=== PATIENT | female | born 1985 | race Caucasian/White ===

== ENCOUNTER 2017-08-11 02:43 | Emergency (ER) | payer OTHER ==
[2017-08-11 02:49] VITALS: BP 133/83; PULSE 91; RESP 18; TEMP 97.9
[2017-08-11] MEDS ORDERED: KETOROLAC 60 MG/2 ML VIAL IM STA (02:52)
[2017-08-11] MEDS ORDERED: ORPHENADRINE 30 MG/ML 2 ML VIAL IM STA (02:52)
--- NOTE | 2017-08-11 03:08 | ED ---
General Adult HPI - General Chief complaint: Back Pain/Injury Stated complaint: back pain Time Seen by Provider: 08/11/17 02:50 Source: patient, RN notes reviewed Mode of arrival: ambulatory Limitations: no limitations - History of Present Illness Initial comments: 31-year-old female presents to the emergency department with a chief complaint of left-sided low back pain. 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 She states she just feels as if there is a very tight muscle. She states standing up always straight causes her increased pain. She denies any numbness or tingling down the leg she denies any loss of bowel or bladder function. Patient denies any fever chills any cough cold symptoms. Any history of kidney stones any changes in urination. She did not take anything for the pain she just came directly here. She was concerned due to the discomfort so she thought that she should be seen.Patient denies any recent fever, chills, shortness of breath, chest pain, abdominal pain, nausea vomiting , numbness or tingling, dysuria or hematuria, constipation or diarrhea, headaches or visual changes, or any other current symptoms. - Related Data Home Medications Medication Instructions Recorded Confirmed Albuterol Inhaler [Ventolin 1 - 2 puff INHALATION Q6HR PRN 01/08/15 01/08/15 Inhaler] Previous Rx's Medication Instructions Recorded Albuterol Inhaler [Ventolin Hfa 2 puff INHALATION Q4HR PRN #1 01/09/15 Inhaler] inhaler predniSONE 50 mg PO DAILY #5 tab 01/09/15 Orphenadrine [Norflex] 100 mg PO Q12H #10 tablet.er 08/11/17 Allergies Allergy/AdvReac Type Severity Reaction Status Date / Time No Known Allergies Allergy Verified 01/08/15 23:56 Review of Systems ROS Statement: Those systems with pertinent positive or pertinent negative responses have been documented in the HPI. ROS Other: All systems not noted in ROS Statement are negative. Past Medical History Past Medical History: Asthma History of Any Multi-Drug Resistant Organisms: None Reported Past Surgical History: Section, Tubal Ligation Past Psychological History: No Psychological Hx Reported Smoking Status: Current every day smoker Past Alcohol Use History: None Reported Past Drug Use History: None Reported General Exam Limitations: no limitations General appearance: alert, in no apparent distress Neck exam: Present: normal inspection. Absent: tenderness, meningismus, lymphadenopathy Respiratory exam: Present: normal lung sounds bilaterally. Absent: respiratory distress, wheezes, rales, rhonchi, stridor Cardiovascular Exam: Present: regular rate, normal rhythm, normal heart sounds. Absent: systolic murmur, diastolic murmur, rubs, gallop, clicks Extremities exam: Present: normal inspection, full ROM, normal capillary refill. Absent: tenderness, pedal edema, joint swelling, calf tenderness Back exam: Present: normal inspection, full ROM, tenderness ((Spinal region), muscle spasm ((Spinal). Absent: vertebral tenderness, rash noted Neurological exam: Present: alert, oriented X3 Psychiatric exam: Present: normal affect, normal mood Skin exam: Present: warm, dry, intact, normal color. Absent: rash Course Vital Signs 08/11/17 02:45 Temperature 97.9 F Pulse Rate 91 Respiratory 18 Rate Blood Pressure 133/83 O2 Sat by Pulse 99 Oximetry Medical Decision Making - Medical Decision Making 31-year-old female presents with what appears to be lumbar strain and muscle spasm after bending type injury at work. This time with Norflex and Toradol she is feeling better. This time we will start her on Norflex for home. We discussed follow-up we discussed return parameters all questions. Patient stated that she understood and she is agreement this plan. She will be discharged home. Disposition Clinical Impression: Strain of lumbar region, Muscle spasm Disposition: HOME SELF-CARE Condition: Stable Instructions: Muscle Spasm (ED), Lower Back Exercises (ED) Additional Instructions: Please use medication as discussed. Please follow up with family doctor if symptoms have not improved over the next two days. Please return to the emergency room if your symptoms increase or worsen or for any other concerns. Prescriptions: Orphenadrine [Norflex] 100 mg PO Q12H #10 tablet.er Referrals: Lissa James III, MD [STAFF PHYSICIAN] - 1-2 days Time of Disposition: 03:22
== END 2017-08-11 03:29 | disposition home or self-care (01) ==
LOC: EC 02:43
DX: S39.012A Strain of muscle, fascia and tendon of lower back, initial encounter (principal); X50.1XXA Overexertion from prolonged static or awkward postures, initial encounter; Y93.89 Activity, other specified; Y92.69 Other specified industrial and construction area as the place of occurrence of the external cause; F17.200 Nicotine dependence, unspecified, uncomplicated
CPT/HCPCS: 99283; 96372 ×2; J2360; J1885

== ENCOUNTER 2017-10-20 16:22 | Emergency (ER) | payer OTHER ==
[2017-10-20] MEDS ORDERED: ONDANSETRON 4 MG ODT STARTER PACK 2 TAB BTL PO STA (17:25)
[2017-10-20] MEDS ORDERED: ACETAMINOPHEN TAB 500 MG TAB PO STA (17:25)
[2017-10-20] MEDS ORDERED: IBUPROFEN 600 MG STARTER PACK 4 TAB BTL PO STA (17:25)
[2017-10-20] MEDS ORDERED: IPRATROPIUM-ALBUTEROL 3 ML NEB INHALATION STA (17:26)
--- NOTE | 2017-10-20 17:29 | ED ---
Fever HPI - General Chief Complaint: Fever Stated Complaint: Fever Time Seen by Provider: 10/20/17 17:03 Source: patient, RN notes reviewed, old records reviewed Mode of arrival: ambulatory Limitations: no limitations - History of Present Illness Initial Comments: 32-year-old female presents emergency room Chief complaint of 2 days of cough and congestion. She states that she isn't having a sore throat as well for the past 2 days. She states that she vomited last night. She states that she was sent home from work. Patient relates that she's had no urinary symptoms. She states that she has been having hard time with some food today. She reports that she's been having some left lower quadrant abdominal pain intermittently for the past few days. She states that this abdominal pain was prior to her onset of upper a story symptoms. She denies any changes in stools. She states that she has had a history of sick contacts including her nephew and her son. - Related Data Home Medications Medication Instructions Recorded Confirmed Ibuprofen [Motrin Ib] 400 mg PO Q6H PRN 10/20/17 10/20/17 Pseudoephedrine [Sudafed] 30 mg PO Q4H PRN 10/20/17 10/20/17 Previous Rx's Medication Instructions Recorded Albuterol Inhaler [Ventolin Hfa 1 - 2 puff INHALATION RT-Q6H PRN 10/20/17 Inhaler] #1 inhaler Azithromycin [Zithromax Z-pack] 250 mg PO DIRECTED #6 tab 10/20/17 predniSONE 10 mg PO DAILY #15 tab 10/20/17 Allergies Allergy/AdvReac Type Severity Reaction Status Date / Time No Known Allergies Allergy Verified 10/20/17 17:11 Review of Systems ROS Statement: Those systems with pertinent positive or pertinent negative responses have been documented in the HPI. ROS Other: All systems not noted in ROS Statement are negative. Past Medical History Past Medical History: Asthma History of Any Multi-Drug Resistant Organisms: None Reported Past Surgical History: Section, Tubal Ligation Past Psychological History: No Psychological Hx Reported Smoking Status: Current every day smoker Past Alcohol Use History: None Reported Past Drug Use History: None Reported General Exam - General Exam Comments Initial Comments: 32-year-old female. Alert and oriented. No significant distress. Limitations: no limitations General appearance: alert, in no apparent distress Head exam: Present: atraumatic, normocephalic, normal inspection Eye exam: Present: normal appearance, PERRL, EOMI. Absent: scleral icterus, conjunctival injection, periorbital swelling ENT exam: Present: mucous membranes moist, TM's normal bilaterally, other ( Rhinorrhea noted. Patient has tenderness over the ethmoid sinuses.). Absent: normal exam, normal oropharynx (Erythematous oropharynx.) Neck exam: Present: normal inspection, lymphadenopathy. Absent: tenderness, meningismus Respiratory exam: Present: normal lung sounds bilaterally. Absent: respiratory distress, wheezes, rales, rhonchi, stridor Cardiovascular Exam: Present: regular rate, normal rhythm, normal heart sounds. Absent: systolic murmur, diastolic murmur, rubs, gallop, clicks GI/Abdominal exam: Present: soft, normal bowel sounds. Absent: distended, tenderness, guarding, rebound, rigid Extremities exam: Present: normal inspection, full ROM, normal capillary refill. Absent: tenderness, pedal edema, joint swelling, calf tenderness Back exam: Present: normal inspection Neurological exam: Present: alert, oriented X3, CN II-XII intact Course Vital Signs 10/20/17 10/20/17 10/20/17 16:31 18:22 18:30 Temperature 100.0 F H Pulse Rate 94 94 96 Respiratory 20 Rate Blood Pressure 109/64 O2 Sat by Pulse 98 Oximetry Medical Decision Making - Medical Decision Making 32-year-old female presents chief complaint of fever, upper respiratory congestion. Patient reports no signs of intermittent left-sided abdominal pain. Normal stools or vomits. She doubts of vomiting. She is given Zofran, Motrin and Tylenol. Urinalysis negative. Chest x-rays reviewed and shows no acute process. Fluid rapid strep are negative. She does have significant sinus congestion. Productive cough. The Patient on steroids and azithromycin cover for community acquired pneumonia. Discussed appropriate follow-up. Patient understood history plan will comply. Return parameters were discussed. - Lab Data Lab Results 10/20/17 10/20/17 10/20/17 Range/Units 17:40 17:40 17:51 Urine Color Urine Appearance (Clear) Urine pH (5.0-8.0) Ur Specific [place] (1.001-1.035) Urine Protein (Negative) Urine Glucose (UA) (Negative) Urine Ketones (Negative) Urine Blood (Negative) Urine Nitrite (Negative) Urine Bilirubin (Negative) Urine Urobilinogen (<2.0) mg/dL Ur Leukocyte Esterase (Negative) Urine HCG, Qual Not Detected (Not Detectd) Influenza Type A RNA Not Detected (Not Detectd) Influenza Type B (PCR) Not Detected (Not Detectd) Group A Strep Rapid Negative (Negative) 10/20/17 Range/Units 17:51 Urine Color Light Yellow Urine Appearance Clear (Clear) Urine pH 7.0 (5.0-8.0) Ur Specific [place] 1.001 (1.001-1.035) Urine Protein Negative (Negative) Urine Glucose (UA) Negative (Negative) Urine Ketones Negative (Negative) Urine Blood Negative (Negative) Urine Nitrite Negative (Negative) Urine Bilirubin Negative (Negative) Urine Urobilinogen <2.0 (<2.0) mg/dL Ur Leukocyte Esterase Negative (Negative) Urine HCG, Qual (Not Detectd) Influenza Type A RNA (Not Detectd) Influenza Type B (PCR) (Not Detectd) Group A Strep Rapid (Negative) - Radiology Data Radiology results: report reviewed Chest x-ray is negative for any acute cardiac process. Disposition Clinical Impression: Upper respiratory infection, Acute bronchitis Disposition: HOME SELF-CARE Condition: Good Instructions: Acute Bronchitis (ED) Additional Instructions: Patient has follow-up with primary care provider. Take medications as prescribed. Return to emergency department if any alarming signs or symptoms occur. Prescriptions: Albuterol Inhaler [Ventolin Hfa Inhaler] 1 - 2 puff INHALATION RT-Q6H PRN #1 inhaler PRN Reason: Shortness Of Breath Azithromycin [Zithromax Z-pack] 250 mg PO DIRECTED #6 tab predniSONE 10 mg PO DAILY #15 tab Is patient prescribed a controlled substance at d/c from ED?: No When asked, does pt state using other controlled substances?: No If prescribed controlled substance>3 days was MAPS reviewed?: No If opioid is for acute pain is fill amount 7 days or less?: No If Rx opioid, was Start Talking consent form obtained?: No Referrals: Dima Galdamez MD [Primary Care Provider] - 1-2 days Time of Disposition: 19:05
[2017-10-20 18:00] LABS: Appearance,Urine Clear (Clear); Bilirubin,Urine Negative (Negative); Blood,Urine Negative (Negative); Color,Urine Light Yellow; Glucose,Urine (UA) Negative (Negative); Ketones,Urine Negative (Negative); Leukocyte Esterase,Urine Negative (Negative); Nitrite,Urine Negative (Negative); Protein,Urine Negative (Negative); Specific Gravity,Urine 1.001 (1.001-1.035); Urobilinogen,Urine <2.0 mg/dL (<2.0)
--- NOTE | 2017-10-20 18:27 | XR ---
EXAMINATION TYPE: XR chest 2V DATE OF EXAM: 10/20/2017 COMPARISON: Prior chest 01/09/2015 HISTORY: Cough and congestion, history asthma TECHNIQUE: Frontal and lateral views of the chest are obtained. FINDINGS: There is no focal air space opacity, pleural effusion, or pneumothorax seen. The cardiac silhouette size is within normal limits. The osseous structures are intact. IMPRESSION: No acute cardiopulmonary process.
[2017-10-20 19:24] VITALS: BP 108/55; PULSE 92; RESP 18; TEMP 98.1
== END 2017-10-20 19:23 | disposition home or self-care (01) ==
LOC: EC 16:22
DX: J20.9 Acute bronchitis, unspecified (principal); J06.9 Acute upper respiratory infection, unspecified; J45.909 Unspecified asthma, uncomplicated; F17.200 Nicotine dependence, unspecified, uncomplicated
CPT/HCPCS: 94640; 81003; 81025; 87081; 87430; 87502; 71046; 99284; S0119